=== PATIENT | male | born 1995 | race American Indian/Alaskan Native ===

== ENCOUNTER 2016-11-29 11:26 | Emergency (ER) | payer BC ==
--- NOTE | 2016-11-29 11:51 | Emergency Department Report ---
Chief Complaint: Abdominal Pain Stated Complaint: FEVER Time Seen by Provider: 11/29/16 11:47 - HPI History of Present Illness: 20 y.o male complain of headache and abdominal pain .pt state he took a laxative on yesterday with relief.pt complain of nausea at present - ROS Review of Systems: per HPI - Exam Vital Signs: Vital Signs 11/29/16 11:38 Temperature 97.3 F L Pulse Rate 119 H Respiratory 22 Rate Blood Pressure 157/99 O2 Sat by Pulse 100 Oximetry Physical Exam: GENERAL: The patient is well-developed and well-nourished. Patient is in NAD. HENT: Normocephalic. Atraumatic. Patient has moist mucous membranes. Throat: No erythema, swelling or exudates. EYES: Extraocular motions are intact, PERRL NECK: Supple. No meningitic signs are noted. There is no adenopathy noted. CHEST/LUNGS: Clear to auscultation bilaterally. No wheezing, rales or rhonchi noted. There is no respiratory distress noted. HEART/CARDIOVASCULAR: Regular rate and rhythm. Normal S1 S2. No murmurs, rubs , clicks, or gallops. ABDOMEN: Abdomen is soft, nontender.. Bowel sounds normoactive. There is no abdominal distention. Negative rebound tenderness. : Deferred. SKIN: There is no rash. There is no edema. There is no diaphoresis. NEURO: The patient is A&Ox3. The patient has no focal neurologic deficits. MUSCULOSKELETAL: There is no tenderness or deformity. There is no limitation range of motion. PSYCH: Pt has appropriate mood and affect. MSE screening note: Focused history and physical exam performed. Due to findings the following was ordered: ED Disposition for MSE Condition: Stable
[2016-11-29 12:19] LABS: Hematocrit 46.1 % (35.5-45.6); Hemoglobin 14.6 gm/dl (11.8-15.2); Mean Corpuscular HGB Conc 32 % (32-34); Mean Corpuscular Volume 72 fl (84-94); Platelet Count 180 K/mm3 (140-440); Red Blood Count 6.43 M/mm3 (3.65-5.03); Red Cell Distribution Width 15.5 % (13.2-15.2); White Blood Count 5.6 K/mm3 (4.5-11.0)
[2016-11-29 12:21] LABS: Mean Corpuscular Hemoglobin 23 pg (28-32)
[2016-11-29 12:39] LABS: Anion Gap 17 mmol/L; Blood Urea Nitrogen 10 mg/dL (9-20); Calcium 9.5 mg/dL (8.4-10.2); Carbon Dioxide 27 mmol/L (22-30); Chloride 98.2 mmol/L (98-107); Glucose 91 mg/dL (75-100); Sodium 138 mmol/L (137-145)
[2016-11-29 13:03] LABS: Bacteria,Urine 1+ /HPF (Negative); Bilirubin,Urine NEG (Negative); Blood,Urine NEG (Negative); Ketones,Urine NEG (Negative); Leukocyte Esterase,Urine TR (Negative); Mucus,Urine FEW /HPF; Nitrite,Urine NEG (Negative); Urobilinogen,Urine < 2.0 mg/dL (<2.0)
[2016-11-29 16:01] VITALS: BP 149/99
--- NOTE | 2016-11-30 01:33 | ED Elopement Review ---
ED Pt Elopement review - Results review Lab results: Laboratory Tests 11/29/16 11/29/16 11/29/16 11:37 12:12 12:12 WBC 5.6 RBC 6.43 H Hgb 14.6 Hct 46.1 H MCV 72 L MCH 23 L MCHC 32 RDW 15.5 H Plt Count 180 Lymph % (Auto) 28.4 [place] % (Auto) 14.8 H Eos % (Auto) 2.0 Baso % (Auto) 1.0 Lymph # 1.6 [place]clain # 0.8 Eos # 0.1 Baso # 0.1 Seg Neutrophils % 53.8 Seg Neutrophils # 3.0 Sodium 138 Potassium 4.0 Chloride 98.2 Carbon Dioxide 27 Anion Gap 17 BUN 10 Creatinine 1.0 Estimated GFR > 60 BUN/Creatinine Ratio 10.00 Glucose 91 POC Glucose 136 H Calcium 9.5 Urine Color Urine Turbidity Urine pH Ur Specific [place] Urine Protein Urine Glucose (UA) Urine Ketones Urine Blood Urine Nitrite Urine Bilirubin Urine Urobilinogen Ur Leukocyte Esterase Urine WBC (Auto) Urine RBC (Auto) U Epithel Cells (Auto) Urine Bacteria (Auto) Urine Mucus 11/29/16 12:17 WBC RBC Hgb Hct MCV MCH MCHC RDW Plt Count Lymph % (Auto) [place] % (Auto) Eos % (Auto) Baso % (Auto) Lymph # [place] # Eos # Baso # Seg Neutrophils % Seg Neutrophils # Sodium Potassium Chloride Carbon Dioxide Anion Gap BUN Creatinine Estimated GFR BUN/Creatinine Ratio Glucose POC Glucose Calcium Urine Color Yellow Urine Turbidity Clear Urine pH 6.0 Ur Specific [place] 1.021 Urine Protein 30 mg/dl Urine Glucose (UA) Neg Urine Ketones Neg Urine Blood Neg Urine Nitrite Neg Urine Bilirubin Neg Urine Urobilinogen < 2.0 Ur Leukocyte Esterase Tr Urine WBC (Auto) 5.0 Urine RBC (Auto) 2.0 U Epithel Cells (Auto) 3.0 Urine Bacteria (Auto) 1+ Urine Mucus Few - Call Back decision Pt Call Back Decision: No action required
== END 2016-11-29 17:43 | disposition left against medical advice (07) ==
LOC: ED 11:26
DX: R51 Headache (principal); R10.9 Unspecified abdominal pain; R11.0 Nausea; Z53.21 Procedure and treatment not carried out due to patient leaving prior to being seen by health care provider
CPT/HCPCS: 36415; 80048; 81001; 82962; 85025